=== PATIENT | female | born 1975 | race Hispanic/Latino ===

== ENCOUNTER 2025-05-17 04:52 | Emergency (ER) | payer MEDICAID ==
[2025-05-17] MEDS ORDERED: ONDANSETRON 4 MG (ODT) TAB ONE (05:28)
[2025-05-17] MEDS ORDERED: HYDROCODONE/APAP 5/325 MG TAB ONE (05:28)
--- NOTE | 2025-05-17 06:17 | EDPHYS ---
Physician Documentation [facility] Name: Riana Trivedi Age: 50 yrs Sex: Female : 1975 Arrival Date: 05/17/2025 Time: 04:52 Bed 19 Private MD: ED Physician Juan Luis Chapa HPI: 05/17 05:29 This 50 yrs old Female presents to ER via Wheelchair with complaints of Foot sp3 Injury. 05:29 50-year-old female with history of hyperlipidemia, anxiety now presents ED with chief sp3 complaint right sided foot pain when due to her cat, a lamp fell on her right foot around the superior portion. This occurred just prior to arrival. Patient has not taken any medications. No prior injury to that foot. She is ambulatory. Review of systems otherwise negative.. 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 - Infectious Disease History:: Denies. - Social history:: Smoking status: Patient reports the use of cigarette tobacco products, smokes one-half pack cigarettes per day, Patient/guardian denies using alcohol, street drugs. ROS: 05:30 Constitutional: Negative for fever, chills, and weight loss, Eyes: Negative for injury, sp3 pain, redness, and discharge, ENT: Negative for injury, pain, and discharge, Neck: Negative for injury, pain, and swelling, Cardiovascular: Negative for chest pain, palpitations, and edema, Respiratory: Negative for shortness of breath, cough, wheezing, and pleuritic chest pain, Abdomen/GI: Negative for abdominal pain, nausea, vomiting, diarrhea, and constipation, Back: Negative for injury and pain, Skin: Negative for injury, rash, and discoloration, Neuro: Negative for headache, weakness, numbness, tingling, and seizure, Psych: Negative for depression, anxiety, suicide ideation, homicidal ideation, and hallucinations, Allergy/Immunology: Negative for hives, rash, and allergies, Endocrine: Negative for neck swelling, polydipsia, polyuria, polyphagia, and marked weight changes, 05:30 All other systems are negative, Exam: 05:30 Constitutional: This is a well developed, well nourished patient who is awake, alert, sp3 and in no acute distress. Neck: Trachea midline, no thyromegaly or masses palpated, and no cervical lymphadenopathy. Supple, full range of motion without nuchal rigidity, or vertebral point tenderness. No Meningismus. Cardiovascular: Regular rate and rhythm with a normal S1 and S2. No gallops, murmurs, or rubs. Normal PMI, no JVD. No pulse deficits. Respiratory: Lungs have equal breath sounds bilaterally, clear to auscultation and percussion. No rales, rhonchi or wheezes noted. No increased work of breathing, no retractions or nasal flaring. Skin: Warm, dry with normal turgor. Normal color with no rashes, no lesions, and no evidence of cellulitis. 05:30 Musculoskeletal/extremity: Patient has abrasion and mild swelling the superior aspect of the right foot in the tarsal region. Distal neurovascular exam capillary refill are normal.. Vital Signs: 05:10 BP 96 / 69; Pulse 72; Resp 18; Temp 97.3; Pulse Ox 99% ; Weight 86.64 kg; Height 5 ft. br2 7 in. ; Pain 8/10; 05:15 BP 105 / 72; Pulse 65; Resp 16; Pulse Ox 99% on R/A; al5 05:30 BP 107 / 56; Pulse 63; Resp 18; Pulse Ox 98% on R/A; al5 06:00 BP 103 / 62; Pulse 63; Resp 17; Pulse Ox 98% on R/A; al5 06:15 BP 116 / 57; Pulse 61; Resp 17; Pulse Ox 98% on R/A; al5 05:10 Body Mass Index 29.91 (86.64 kg, 170.18 cm) br2 05:10 Pain Scale: Adult br2 MDM: 05:15 Medical Screening Exam initiated sp3 05:31 Data reviewed: vital signs, nurses notes, radiologic studies. ED course: Differential sp3 diagnosis includes soft tissue swelling versus abrasion versus contusion versus fracture of the right foot. X-rays pending. Ice pack and pain control will be treated with Harmony p.o. and ondansetron p.o. Follow-up with orthopedics as needed. Probable discharge.. 06:16 ED course: Foot x-ray negative. Will safely discharge patient home on p.o. tramadol sp3 conservative treatment with orthopedic follow-up.. 05/17 05:10 Order name: Foot Right 3 View XRAY br2 05/17 05:22 Order name: Ice pack; Complete Time: 05:24 sp3 05/17 06:19 Order name: Crutches; Complete Time: 06:30 sp3 05/17 06:19 Order name: Post-op shoe; Complete Time: 06:30 sp3 Administered Medications: 05:35 Drug: Ondansetron Oral Disintegrating Tablet Oral Disintegrating Tablet 4 mg PO once af3 Route: PO; 06:18 Follow up: Response: No adverse reaction af3 05:35 Drug: HYDROcodone-acetaminophen PO 5 mg-325 mg 2 tabs PO once Route: PO; af3 06:18 Follow up: Response: No adverse reaction; RASS: Alert and Calm (0) af3 Disposition Summary: 05/17/25 06:16 Discharge Ordered Notes: Location: Home sp3 Condition: Stable sp3 Diagnosis - Right foot contusion sp3 Followup: sp3 - With: Grant Ash MD - When: Upon discharge from the Emergency Department - Reason: Recheck today's complaints Discharge Instructions: - Discharge Summary Sheet sp3 - Foot Contusion sp3 Forms: - Medication Reconciliation Form sp3 - Antibiotic Education sp3 - Prescription Opioid Use sp3 - Patient Portal Instructions sp3 - Leadership Thank You Letter sp3 Prescriptions: - Tramadol 50 mg Oral Tablet - take 1 tablet ORAL route every 8 hours as needed; 12 tablet; Refills: 0, sp3 Product Selection Permitted Signatures: Dispatcher [employer] EDMS Juan Luis Chapa MD MD sp3 Xiao Parr RN RN br2 Yashira Magana RN RN af3 Corrections: (The following items were deleted from the chart) 05:10 05:10 Foot Right 3 View+RAD.RAD.BRZ ordered. EDMS EDMS
--- NOTE | 2025-05-17 06:17 | ER ---
Nurse's Notes [facility] Name: Riaan Trivedi Age: 50 yrs Sex: Female : 1975 Arrival Date: 05/17/2025 Time: 04:52 Bed 19 Private MD: Diagnosis: Right foot contusion Presentation: 05/17 05:10 Chief complaint: Patient states: LAMP LANDED ON RIGHT FOOT. PT C/O PAIN TO RIGHT DORSAL br2 FOOT. Coronavirus screen: Client indicates they have traveled out of the [place] in the last 14 days. Ebola Screen: Patient denies exposure to infectious person. Initial Sepsis Screen: Does the patient meet any 2 criteria? No. Patient's initial sepsis screen is negative. Does the patient have a suspected source of infection? No. Patient's initial sepsis screen is negative. Risk Assessment: Do you want to hurt yourself or someone else? Patient reports no desire to harm self or others. Onset of symptoms was May 16, 2025 at 17:00. 05:10 Method Of Arrival: Wheelchair br2 05:10 Acuity: CARROLL 4 br2 Triage Assessment: 05:15 General: Appears uncomfortable, Behavior is calm, cooperative. Pain: Complains of pain br2 in lateral aspect of right toes and dorsum of right foot Pain currently is 8 out of 10 on a pain scale. 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 - Infectious Disease History:: Denies. - Social history:: Smoking status: Patient reports the use of cigarette tobacco products, smokes one-half pack cigarettes per day, Patient/guardian denies using alcohol, street drugs. Screenin:18 [facility] ED Fall Risk Assessment (Adult) History of falling in the last 3 months, al5 including since admission Yes- single mechanical fall (1 pt) Confusion or Disorientation No (0 pts) Intoxicated or Sedated No (0 pts) Impaired Gait Yes (1 pt) Mobility Assist Device Used No (0 pt) Altered Elimination No (0 pt) Score/Fall Risk Level 0 - 2 = Low Risk Oriented to surroundings, Maintained a safe environment, Hourly rounding (assess needs \T\ fall precautionary measures) done. Abuse screen: Denies threats or abuse. Denies injuries from another. Nutritional screening: No deficits noted. Tuberculosis screening: No symptoms or risk factors identified. Assessment: 05:18 General: Appears in no apparent distress. uncomfortable, Behavior is calm, cooperative. al5 Pain: Complains of pain in dorsum of right foot. Neuro: Level of Consciousness is awake, alert, obeys commands, Oriented to person, place, time, situation. Cardiovascular: Capillary refill < 3 seconds Patient's skin is warm and dry. Respiratory: Airway is patent Respiratory effort is even, unlabored, Respiratory pattern is regular, symmetrical. GI: Abdomen is non-distended, Ileostomy site is clean and dry. Ostomy appliance is intact. : No signs and/or symptoms were reported regarding the genitourinary system. EENT: No signs and/or symptoms were reported regarding the EENT system. Derm: Skin is intact, is healthy with good turgor, Skin is pink, warm \T\ dry. normal. Musculoskeletal: Circulation, motion, and sensation intact. Range of motion: limited in all extremities, Reports pain in dorsum of right foot and lateral aspect of right toes. Vital Signs: 05:10 BP 96 / 69; Pulse 72; Resp 18; Temp 97.3; Pulse Ox 99% ; Weight 86.64 kg; Height 5 ft. br2 7 in. ; Pain 8/10; 05:15 BP 105 / 72; Pulse 65; Resp 16; Pulse Ox 99% on R/A; al5 05:30 BP 107 / 56; Pulse 63; Resp 18; Pulse Ox 98% on R/A; al5 06:00 BP 103 / 62; Pulse 63; Resp 17; Pulse Ox 98% on R/A; al5 06:15 BP 116 / 57; Pulse 61; Resp 17; Pulse Ox 98% on R/A; al5 05:10 Body Mass Index 29.91 (86.64 kg, 170.18 cm) br2 05:10 Pain Scale: Adult br2 ED Course: 04:58 Patient arrived in ED. gm2 05:03 Juan Luis Chapa MD is Attending Physician. al5 05:12 Triage completed. br2 05:15 Arm band placed on right wrist. br2 05:18 Zaira Pena, RN is Primary Nurse. al5 05:18 Patient has correct armband on for positive identification. Bed in low position. Call al5 light in reach. Side rails up X 1. Provided Education on: plan of care. 05:18 No provider procedures requiring assistance completed. Patient did not have IV access al5 during this emergency room visit. 06:16 Grant Ash MD is Referral Physician. sp3 06:28 Crutch training done. Ortho shoe applied to right foot. al5 06:40 Foot Right 3 View XRAY In Process Unspecified. EDMS Administered Medications: 05:35 Drug: Ondansetron Oral Disintegrating Tablet Oral Disintegrating Tablet 4 mg PO once af3 Route: PO; 06:18 Follow up: Response: No adverse reaction af3 05:35 Drug: HYDROcodone-acetaminophen PO 5 mg-325 mg 2 tabs PO once Route: PO; af3 06:18 Follow up: Response: No adverse reaction; RASS: Alert and Calm (0) af3 Medication: 05:18 VIS not applicable for this client. al5 Outcome: 06:16 Discharge ordered by . sp3 06:29 Discharged to home with crutches, with family, al5 06:29 Condition: good 06:29 Discharge instructions given to patient, family, Instructed on discharge instructions, follow up and referral plans. medication usage, crutch walking, Demonstrated understanding of instructions, follow-up care, medications, crutch walking, Prescriptions given X 1, 06:30 Patient left the ED. al5 Signatures: Dispatcher [employer] EDMS Juan Luis Chapa MD MD sp3 Maricel Seaman 2 Zaira Pena, RN RN al5 Xiao Parr RN RN br2 Yashira Magana RN RN af3 Corrections: (The following items were deleted from the chart) 06:29 06:29 Discharge instructions given to patient, family, Instructed on discharge al5 instructions, follow up and referral plans. medication usage, crutch walking, Demonstrated understanding of instructions, follow-up care, medications, crutch walking, Prescriptions given X al5
--- NOTE | 2025-05-17 08:22 | RAD REPORT ---
EXAMINATION: XR Foot Right 3 View CLINICAL INDICATION: Female, 50 years old[address] 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 COMPARISON: No prior exam. FINDINGS: No evidence of fracture or dislocation. Normal alignment. No evidence of arthropathy or oth er focal bone lesion. Soft tissues are unremarkable. No soft tissue swelling. No significant degenerative changes. IMPRESSION: No acute or significant abnormalities.
[2025-05-17 10:37] VITALS: TEMP 97.3
[2025-05-17 10:49] VITALS: O2SAT 98
[2025-05-17 10:52] VITALS: BP 116/57
== END 2025-05-17 06:30 | disposition home or self-care (01) ==
LOC: ER 04:52
DX: S90.31XA Contusion of right foot, initial encounter (principal); F17.210 Nicotine dependence, cigarettes, uncomplicated
CPT/HCPCS: 73630; 99284; Q0162